=== PATIENT | male | born 1960 | race Hispanic/Latino ===

== ENCOUNTER → 2020-04-16 | Outpatient (CLI) | payer BC ==
[~2020-04-16] MED LIST: CYCLOBENZAPRINE5 MG PO; NAPROXEN250 MG PO
== END ==
LOC: US 14:05
PROVIDERS: ATTEND Family Medicine
DX: R31.9 Hematuria, unspecified (principal)
CPT/HCPCS: 76770; 76857

== ENCOUNTER → 2022-07-28 | Day surgery (SDC) | payer BC ==
[~2022-07-28] MED LIST changes: +HYOSCYAMINE SULFATE 0.5 MG/ML INJ ONE; +LACTATED RINGER'S 1,000 ML ONE; +LIDOCAINE HCL 2% LOCAL INJ 5 ML SDV VIAL INJ ONE; +LOSARTAN POTAS100 MG PO; +MIDAZOLAM HCL 2 MG/2 ML VIAL ONE; +MULTI-VITAMIN1 EACH PO; +PROPOFOL IV EMULSION 10 MG/ML 20 ML VIAL ONE
[2022-07-28 12:47] VITALS: TEMP 97
[2022-07-28 13:15] VITALS: BP 140/97; PULSE 75; RESP 15; O2SAT 97
== END | disposition home or self-care (01) ==
LOC: OR 09:07
PROVIDERS: ATTEND Internal Medicine Gastroenterology
DX: Z12.11 Encounter for screening for malignant neoplasm of colon (principal); D12.0 Benign neoplasm of cecum; D12.2 Benign neoplasm of ascending colon; D12.3 Benign neoplasm of transverse colon; D12.4 Benign neoplasm of descending colon; K57.30 Diverticulosis of large intestine without perforation or abscess without bleeding; K64.8 Other hemorrhoids; I10 Essential (primary) hypertension; L40.9 Psoriasis, unspecified; Z01.810 Encounter for preprocedural cardiovascular examination; Z68.30 Body mass index [BMI] 30.0-30.9, adult
CPT/HCPCS: 45384; 45385; 93005; J1980; J2001; J2250; J2704; J7121; 45378

== ENCOUNTER 2024-03-25 13:08 | Emergency (ER) | payer BC ==
[~2024-03-25] VITALS: Ht 175.3 cm; Wt 84.4 kg
[~2024-03-25 13:08] MED LIST changes: -HYOSCYAMINE SULFATE 0.5 MG/ML INJ ONE; -LACTATED RINGER'S 1,000 ML ONE; -LIDOCAINE HCL 2% LOCAL INJ 5 ML SDV VIAL INJ ONE; -MIDAZOLAM HCL 2 MG/2 ML VIAL ONE; -PROPOFOL IV EMULSION 10 MG/ML 20 ML VIAL ONE
[2024-03-25 13:20] VITALS: PULSE 83; RESP 14
[2024-03-25 13:42] LABS: BASOPHILS % 0.5 % (0.0-1.0); EOSINOPHILS # (AUTO) 0.1 (0.0-0.4); EOSINOPHILS % 1.3 % (0.0-6.0); HEMATOCRIT 44.6 % (38.2-49.6); HEMOGLOBIN 15.6 g/dL (14.0-18.0); LYMPHOCYTES # (AUTO) 1.1 (1.0-3.2); LYMPHOCYTES % 18.3 % (18.0-39.1); MEAN CORPUSCULAR HEMOGLOBIN 32.9 pg (28-32); MEAN CORPUSCULAR VOLUME 94.1 fL (81-99); MONOCYTES # (AUTO) 0.5 (0.2-0.8); MONOCYTES % 8.3 % (4.4-11.3); NEUTROPHILS # (AUTO) 4.3 (2.1-6.9); NEUTROPHILS % 71.4 % (38.7-80.0); PLATELET COUNT 182 x10e3/uL (140-360); RED BLOOD COUNT 4.74 x10e6/uL (4.3-5.7)
[2024-03-25 13:43] VITALS: TEMP 98
[2024-03-25] MEDS: SODIUM CHLORIDE 0.9% 1000ML 1,000 ML IV STA (14:02)
[2024-03-25 14:12] LABS: ALBUMIN 3.9 g/dL (3.5-5.0); ALBUMIN/GLOBULIN RATIO 1.3 (0.8-2.0); ANION GAP 11.8 mmol/L (8-16); BILIRUBIN,TOTAL 0.8 mg/dL (0.2-1.2); CALCIUM 8.9 mg/dL (8.4-10.2); CREATININE, SERUM 1.11 mg/dL (0.72-1.25); POTASSIUM 3.8 mmol/L (3.5-5.1)
[2024-03-25 14:18] LABS: TROPONIN I 0.006 ng/mL (0-0.300)
[2024-03-25 15:00] VITALS: TEMP 97.9
[2024-03-25 15:31] VITALS: BP 145/85; PULSE 74; RESP 18; O2SAT 98
== END 2024-03-25 15:35 | disposition home or self-care (01) ==
LOC: ER 13:14
DX: R42 Dizziness and giddiness (principal); I16.0 Hypertensive urgency; I10 Essential (primary) hypertension
CPT/HCPCS: 36415; 70450; 71045; 80053; 82550; 83690; 83880; 84484; 85025; 93005; 99284; J7030